=== PATIENT | female | born 1950 | race Two or more races ===

== ENCOUNTER → 2024-07-02 | Emergency (ER) | payer OTHER ==
[~2024-07-02] VITALS: Ht 129.5 cm; Wt 77.1 kg
[~2024-07-02] MED LIST: COZAAR25 MG PO; DIPHENHYDRAMINE HCL 50 MG/ML VIAL 1ML ONE; FLUMAZENIL 0.5 MG/5 ML ML IV ONE; FLUMAZENIL 0.5 MG/5 ML ML IV STA; KETOROLAC TROMETHAMINE 60 MG VIAL IM ONE; KETOROLAC TROMETHAMINE 60 MG VIAL IM STA; METFORMIN HCL500 MG; MIDAZOLAM HCL/PF 5 MG/ML VIAL IV STA; MORPHINE SULFATE 2 MG/ML SYRINGE IV STA; MORPHINE SULFATE 4 MG/ML VIAL IV STA; TRAMADOL HCL 50 MG TABLET PO STA
== END | disposition home or self-care (01) ==
LOC: ER 09:32
DX: S43.084A Other dislocation of right shoulder joint, initial encounter (principal); X50.9XXA Other and unspecified overexertion or strenuous movements or postures, initial encounter; Y93.89 Activity, other specified; Y92.89 Other specified places as the place of occurrence of the external cause; Z88.8 Allergy status to other drugs, medicaments and biological substances; I10 Essential (primary) hypertension; Z85.89 Personal history of malignant neoplasm of other organs and systems